=== PATIENT | male | born 1985 | race Caucasian/White ===

== ENCOUNTER 2017-01-29 08:21 | Emergency (ER) | payer OTHER ==
[~2017-01-29] VITALS: Ht 182.9 cm; Wt 80.0 kg
[2017-01-29] MEDS ORDERED: METH40TA PO (08:41)
[2017-01-29] MEDS ORDERED: KETOROLAC TROMETHAMINE 60 MG/2 ML (IM) VIAL IM ONE (09:30)
[2017-01-29] MEDS ORDERED: ORPHENADRINE INJ 60 MG/2 ML AMP IM ONE (09:30)
--- NOTE | 2017-01-29 09:57 | RADRPT ---
EXAM DATE/TIME: 01/29/2017 09:48 [facility] COMPARISON: No previous studies available for comparison. INDICATIONS : New onset seizure. RADIATION DOSE: 39.82 CTDIvol (mGy) MEDICAL HISTORY : None SURGICAL HISTORY : None. ENCOUNTER: Initial ACUITY: 1 day PAIN SCALE: 0/10 LOCATION: cranial TECHNIQUE: Multiple contiguous axial images were obtained of the head. Using automated exposure control and adj ustment of the mA and/or kV according to patient size, radiation dose was kept as low as reasonably a chievable to obtain optimal diagnostic quality images. DICOM format image data is available electro nically for review and comparison. FINDINGS: CEREBRUM: The ventricles are normal for age. No evidence of midline shift, mass lesion, hemorrhage or acute in farction. No extra-axial fluid collections are seen. POSTERIOR FOSSA: The cerebellum and brainstem are intact. The 4th ventricle is midline. The cerebellopontine angle i s unremarkable. EXTRACRANIAL: The visualized portion of the orbits is intact. There is opacification of the visualized portion of t he right maxillary sinus with wall thickening suggesting chronic right maxillary sinusitis. SKULL: The calvaria is intact. No evidence of skull fracture. CONCLUSION: 1. No acute intracranial abnormality. 2. Opacification of the visualized portion of the right maxillary sinus with wall thickening suggesti ng chronic right maxillary sinusitis. Juan Lama MD on January 29, 2017 at 9:54 Board Certified Radiologist. This report was verified electronically.
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
[2017-01-29 10:27] LABS: AUTOMATED NEUTROPHIL # 5.9 TH/MM3 (1.8-7.7); BASOPHIL % 0.3 % (0.0-2.0); EOSINOPHIL % 0.3 % (0.0-4.0); HEMATOCRIT 43.9 % (39.0-51.0); HEMO FLAGS DIFF FINAL; LYMPH % 13.1 % (9.0-44.0); MEAN CELL VOLUME 91.2 FL (80.0-100.0); MEAN CORPUSCULAR HEMOGLOBIN 31.3 PG (27.0-34.0); MEAN CORPUSCULAR HGB CONC 34.3 % (32.0-36.0); MONO % 8.9 % (0.0-8.0); NEUT % 77.4 % (16.0-70.0); PLATELET COUNT 227 TH/MM3 (150-450); RED BLOOD COUNT 4.82 MIL/MM3 (4.50-5.90); RED CELL DISTRIBUTION WIDTH 12.6 % (11.6-17.2); WHITE BLOOD COUNT 7.6 TH/MM3 (4.0-11.0)
[2017-01-29 10:41] LABS: ALT (GPT) 122 U/L (12-78); ANION GAP 4 MEQ/L (5-15); AST (GOT) 87 U/L (15-37); BICARBONATE 28.8 MEQ/L (21.0-32.0); BLOOD UREA NITROGEN 11 MG/DL (7-18); CHLORIDE 106 MEQ/L (98-107); GLOMERULAR FILTRATION RATE 96 ML/MIN (>89); SODIUM (NA) 139 MEQ/L (136-145)
[2017-01-29 10:44] LABS: ALKALINE PHOSPHATASE 118 U/L (45-117); TOTAL BILIRUBIN ADULT 0.5 MG/DL (0.2-1.0)
[2017-01-29] MEDS ORDERED: IOHEXOL 350 MG/ML 10 ML VIAL (for RAD DIAG) IVCONTRAST ONE (12:25)
--- NOTE | 2017-01-29 12:53 | RADRPT ---
EXAM DATE/TIME: 01/29/2017 12:19 [facility] COMPARISON: No previous studies available for comparison. INDICATIONS : Back pain status post seizure/fall. RADIATION DOSE: ; Reconstructed from previous dataset, no dose MEDICAL HISTORY : None SURGICAL HISTORY : None. ENCOUNTER: Initial ACUITY: 1 day PAIN SCALE: 4/10 LOCATION: back TECHNIQUE: Volumetric scanning of the thoracic spine was performed. Multiplanar reconstructions in the sagittal , coronal and oblique axial planes were performed. Using automated exposure control and adjustment o f the mA and/or kV according to patient size, radiation dose was kept as low as reasonably achievable to obtain optimal diagnostic quality images. DICOM format image data is available electronically f or review and comparison. FINDINGS: The vertebral bodies of the thoracic spine are in normal alignment without evidence of subluxation. There is obvious wedging in multiple thoracic vertebral bodies including T7, T8 and T9. There is also superior endplate cupping of both T4 and T5. There is no obvious subluxation. No lytic or blastic le sions identified. On the axial images there are linear lucencies involving the superior endplates of both T9 and T8 suspicious for hairline fractures. T1-T2: Normal. T2-T3: The thecal sac has a normal diameter. No evidence of disc bulge or protrusion. T3-T4: The thecal sac has a normal diameter. No evidence of disc bulge or protrusion. There is superior end plate cupping of T4 without obvious fracture. T4-T5: The thecal sac has a normal diameter. No evidence of disc bulge or protrusion. There is superior end plate cupping of T5 without obvious fracture. T5-T6: The thecal sac has a normal diameter. No evidence of disc bulge or protrusion. T6-T7: The thecal sac has a normal diameter. No evidence of disc bulge or protrusion. Mild endplate cupping and loss of height anteriorly with a questionable hairline fracture (series 6 image 64) of T7 superi or endplate. T7-T8: The thecal sac has a normal diameter. No evidence of disc bulge or protrusion. Mild endplate cupping and loss of height anteriorly with a questionable hairline fracture (series 6, image 73) involving t he left anterolateral endplate. T8-T9: The thecal sac has a normal diameter. No evidence of disc bulge or protrusion. There is mild endplat e cupping and loss of height anteriorly with a question of a hairline fracture ( series 6 image 83) a cross the superior endplate of T9. T9-T10: The thecal sac has a normal diameter. No evidence of disc bulge or protrusion. T10-T11: The thecal sac has a normal diameter. No evidence of disc bulge or protrusion. T11-T12: The thecal sac has a normal diameter. No evidence of disc bulge or protrusion. T12-L1: The thecal sac has a normal diameter. No evidence of disc bulge or protrusion. CONCLUSION: Some loss of height and endplate cupping involving T7, T8, and T9 with questionable hairline fracture seen on single images of the axial sequences. Isidoro Potter MD on January 29, 2017 at 12:45 Board Certified Radiologist. This report was verified electronically.
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
--- NOTE | 2017-01-29 12:56 | RADRPT ---
EXAM DATE/TIME: 01/29/2017 12:19 [facility] COMPARISON: CT THORACIC SPINE W/O CONTRAST, January 29, 2017, 12:19. CT BRAIN W/O CONTRAST, January 29, 2017 , 9:48. INDICATIONS : Back pain status post seizure/fall. IV CONTRAST: 90 cc Omnipaque 350 (iohexol) IV RADIATION DOSE: 3.72 CTDIvol (mGy) MEDICAL HISTORY : None SURGICAL HISTORY : None. ENCOUNTER: Initial ACUITY: 1 day PAIN SCALE: 4/10 LOCATION: back TECHNIQUE: Volumetric scanning of the chest was performed. Using automated exposure control and adjustment of t he mA and/or kV according to patient size, radiation dose was kept as low as reasonably achievable to obtain optimal diagnostic quality images. DICOM format image data is available electronically for review and comparison. Follow-up recommendations for detected pulmonary nodules are based at a minimum on nodule size and pa tient risk factors according to Fleischner Society Guidelines. FINDINGS: LUNGS: There is no consolidation or pneumothorax. No concerning pulmonary nodule is visualized. PLEURA: There is no pleural thickening or pleural effusion. MEDIASTINUM: The heart and great vessels demonstrate no acute abnormality. There is no mediastinal or hilar lymph adenopathy. AXILLAE: Within normal limits. No lymphadenopathy. SKELETAL: The examination demonstrates mild loss of vertebral body height at T7, T8 and T9. CT imaging through the thoracic spine is pending for more definitive assessment. MISCELLANEOUS: The visualized portions of upper abdomen are unremarkable. CONCLUSION: 1. No pneumothorax identified. 2. Mild loss of vertebral body height at T7, T8 and T9. CT imaging of the thoracic spine is pending f or more definitive assessment. Nikolas Echeverria MD on January 29, 2017 at 12:41 Board Certified Radiologist. This report was verified electronically.
[2017-01-29] MEDS ORDERED: NAPR500T PO (13:45)
[2017-03-05] MEDS ORDERED: ROBA500T PO (11:41)
== END 2017-01-29 14:14 | disposition home or self-care (01) ==
LOC: NEPD 08:21
DX: S22.000A Wedge compression fracture of unspecified thoracic vertebra, initial encounter for closed fracture (principal); R56.9 Unspecified convulsions; V47.5XXA Car driver injured in collision with fixed or stationary object in traffic accident, initial encounter
CPT/HCPCS: 70450; 71260; 72072; 72128; 80053; 85025; 96372; 99285; J1885; J2360; L0200; L0484; Q9967